=== PATIENT | female | born 1935 | race Caucasian/White ===

== ENCOUNTER → 2016-11-22 | Day surgery (SDC) | payer MEDICARE, OTHER ==
[~2016-11-22] VITALS: Ht 161.3 cm; Wt 70.0 kg
[~2016-11-22] MED LIST: ALPR.5 PO; BUPIVACAINE HCL PF 0.5% 30 ML VIAL ONE; CALC600T34 PO; CALCTAB94 PO; CEPH-459 PO; CHLORHEXIDINE GLUCONATE 2 % 1 PACK (2 CLOTHS) TOPICAL PRN; CO-EPOW PO; CYMB60CA PO; FAMOTIDINE 20 MG/2 ML VIAL ONE; INSULIN HUMAN REGULAR 1,000 UNITS/10 ML VIAL SQ PRN; LACTATED RINGER'S 1000 ML IV PRN; LEVO100T5 PO; LIDOCAINE HCL 2% 50 ML VIAL ONE; METOPROLOL TARTRATE 25 MG TAB PO PRN; MIDAZOLAM HCL 2 MG/2 ML VIAL ONE; NORC5TAB PO; OMEP20TA PO; POVIDONE IODINE 5% (ANTISEPSIS KIT) 4 APPLICATIONS EACH NARE PRN; PRIL20CA9 PO; PROPOFOL 200 MG/20 ML AMP IV ONE; SODIUM CHLORID 0.9% 500 ML IV PRN; VITA10002 PO; VITA200013 PO; ZOCO20TA PO; ceFAZolin 1,000 MG/NS 100 ML IV SCH
[2016-11-22 08:48] LABS: HEMATOCRIT 37.8 % (35.0-46.0); MEAN CELL VOLUME 97.6 FL (80.0-100.0); MEAN CORPUSCULAR HEMOGLOBIN 33.1 PG (27.0-34.0); MEAN CORPUSCULAR HGB CONC 33.9 % (32.0-36.0); PLATELET COUNT 158 TH/MM3 (150-450); RED BLOOD COUNT 3.87 MIL/MM3 (4.00-5.30); REVIEW FLAG FINAL; WHITE BLOOD COUNT 4.2 TH/MM3 (4.0-11.0)
[2016-11-22] MEDS: NEOMYCIN/POLYMYXIN 1 ML G.U. IRRIGANT ONE (09:29)
--- NOTE | 2016-11-22 10:28 | MP ---
cc: GREG REYNAGA III, M.D. DATE OF SURGERY: 11/22/2016 PREOPERATIVE DIAGNOSIS Left hand lesion. POSTOPERATIVE DIAGNOSIS Left hand lesion. PROCEDURE Left hand lesion wide local excision and biopsy. SURGEON Greg Reynaga III, MD DETAILS OF PROCEDURE The patient was brought to the operating room and placed supine on the operating table. After the correct site and side of surgery were verified by members of each team in the room multiple times including the patient and myself and after adequate IV sedation had been achieved and after an adequate preoperative timeout was performed to everyone's satisfaction, the left upper extremity was prepped and draped in a traditional sterile surgical fashion. An elliptical incision was diagrammed around the 1 cm lesion on the dorsal aspect of the hand within the first webspace which was raised and ulcerated. 1-2 mm was the smallest margin on the radial and ulnar sides. The limb was elevated and then an Jose R wrap was placed around the wrist and forearm to serve as a makeshift tourniquet. A 50/50 mixture of 2% plain lidocaine and 0.5% plain Marcaine was infiltrated into the skin and subcutaneous tissue deep to the lesion. It was then sharply excised in its entirety, tagged with a blue stitch distally, a black stitch radially. Bipolar electrocautery was used for hemostasis. When hemostasis was present a liter's worth of saline was used to thoroughly flush out the wound and the skin edges were re-approximated using running and interrupted 4-0 nylon sutures. The hand and arm were thoroughly cleansed and dried. Betadine and Adaptic dressing was applied atop the wound followed by a bulky soft dressing. A circumferential dressing was then applied. The patient was awakened from anesthesia and transported to the post-anesthesia care unit awake and in stable condition at the end of the case. Sponge, needle and instrument counts were correct at the end of the case as reported by the nurses in the room. MD SERENITY Marcial III/ANGIE /10:05 AM /10:14 AM
[2016-11-22 11:05] VITALS: BP 161/74; PULSE 75; RESP 16; TEMP 97.6; O2SAT 98
== END | disposition home or self-care (01) ==
LOC: PHSDC 07:06
PROVIDERS: ATTEND Orthopaedic Surgery Hand Surgery
DX: C44.629 Squamous cell carcinoma of skin of left upper limb, including shoulder (principal)
CPT/HCPCS: 00400; 11622; 36415; 85027; 88305; J0690; J2250; J7120

== ENCOUNTER → 2016-12-20 | Day surgery (SDC) | payer MEDICARE, OTHER ==
[~2016-12-20] VITALS: Ht 162.6 cm; Wt 67.2 kg
[~2016-12-20] MED LIST changes: -CALC600T34 PO; -LIDOCAINE HCL 2% 50 ML VIAL ONE; +NEOMYCIN/POLYMYXIN 1 ML G.U. IRRIGANT ONE; +ONDANSETRON HCL 4 MG/2 ML VIAL ONE; -PRIL20CA9 PO
[2016-12-20 08:10] VITALS: TEMP 97.7
--- NOTE | 2016-12-20 10:55 | MP ---
cc: GREG REYNAGA III, M.D. DATE OF SURGERY: 12/20/2016 PREOPERATIVE DIAGNOSIS Left hand squamous cell carcinoma. PROCEDURE PERFORMED Wide local re-excision of left hand squamous cell carcinoma. SURGEON Greg Reynaga III, MD PROCEDURE The patient was brought to the operating room and placed supine on the operating table. After the correct site and side of surgery were verified by members of each team in the room multiple times including the patient, myself and after adequate preoperative markings and preoperative written consent were verified by everyone and after adequate preoperative time-out was performed to everyone's satisfaction, after adequate IV sedation had been achieved, the left upper extremity was prepped and draped in traditional sterile surgical fashion. 6 mm margins were measured out from every aspect of the previous scar. The area was infiltrated with 50/50 mixture of 2% plain lidocaine and 0.5% plain Marcaine. The limb was elevated and pressure held on the brachial artery for one minute, the axillary tourniquet was inflated to 200 mmHg for approximately 20 minutes. An elliptical incision was then made around the previous scar with a 6 mm margin. A single black stitch was left at the distal most margin and a double black stitch was left at the radial margin. The specimen was then excised in its entirety and passed off the field and sent to pathology. Bipolar electrocautery was used to control subcutaneous bleeders. A liters worth of sterile water then used to thoroughly flush out the wound. The skin edges were reapproximated easily using 4-0 Vicryl sutures with a deep suture and then the skin edges reapproximated using running and interrupted 4-0 Nylon sutures. The axillary tourniquet was released prior to the closure of the wound and the hand and all the fingers became immediately soft, pink, warm and had brisk capillary refill of less than 2-seconds the entire time. There was minimal tension on the repair but I still placed Mastisol and Steri-Strips across the whole dorsum of the hand to provide for extra support. The hand and arm were thoroughly cleansed and dried. There was no evidence of any hematoma formation. A dry sterile dressing was applied to the wound followed by a bulky soft circumferential dressing. The patient was awakened from anesthesia and transported to the Post Anesthesia Care Unit awake and in stable condition at the end of the case. Sponge, needle, instrument counts were correct at the end of the case as reported by nurses in the room. MD SERENITY Marcial III/DILCIA /10:10 AM /10:35 AM
[2016-12-20 11:03] VITALS: BP 137/81; PULSE 83; RESP 16; O2SAT 99
== END | disposition home or self-care (01) ==
LOC: PHSDC 07:04
PROVIDERS: ATTEND Orthopaedic Surgery Hand Surgery
DX: C44.629 Squamous cell carcinoma of skin of left upper limb, including shoulder (principal)
CPT/HCPCS: 00300; 11643; 88305; J0690; J2250; J2405; J3010; J7120